=== PATIENT | female | born 1970 | race Caucasian/White ===

== ENCOUNTER 2016-08-04 15:13 | Emergency (ER) | payer MEDICAID | END 2016-08-04 18:03 | disposition home or self-care (01) | LOC: D.ER 15:13 | DX: S82.302A Unspecified fracture of lower end of left tibia, initial encounter for closed fracture (principal); X58.XXXA Exposure to other specified factors, initial encounter; Y93.89 Activity, other specified; Y92.89 Other specified places as the place of occurrence of the external cause ==

== ENCOUNTER 2016-09-07 03:24 | Emergency (ER) | payer MEDICAID | END 2016-09-07 04:50 | disposition home or self-care (01) | LOC: D.ER 03:24 | DX: T14.8 Other injury of unspecified body region (principal); X58.XXXA Exposure to other specified factors, initial encounter; Y93.89 Activity, other specified; Y92.89 Other specified places as the place of occurrence of the external cause ==

== ENCOUNTER 2017-07-21 13:31 | Emergency (ER) | payer MEDICAID | END 2017-07-21 14:45 | disposition home or self-care (01) | LOC: D.ER 13:31 | DX: J06.9 Acute upper respiratory infection, unspecified (principal); B34.9 Viral infection, unspecified ==

== ENCOUNTER 2017-08-09 20:38 | Emergency (ER) | payer MEDICAID | END 2017-08-09 23:41 | disposition home or self-care (01) | LOC: D.ER 20:38 | DX: S80.02XA Contusion of left knee, initial encounter (principal); W18.31XA Fall on same level due to stepping on an object, initial encounter; Y93.89 Activity, other specified; Y92.89 Other specified places as the place of occurrence of the external cause ==

== ENCOUNTER 2017-08-19 10:16 | Emergency (ER) | payer MEDICAID ==
[~2017-08-19] VITALS: Ht 177.8 cm; Wt 150.0 kg
[2017-08-19 10:25] VITALS: Ht 177.8 cm; Wt 150.0 kg
[2017-08-19] MEDS ORDERED: DICLOFENAC SODI50 MG PO (10:31)
[2017-08-19 11:09] LABS: APPEARANCE SLT CLOUDY (CLEAR); BILIRUBIN NEGATIVE (NEGATIVE); COLOR YELLOW (YELLOW); GLUCOSE NEGATIVE (NEGATIVE); KETONE NEGATIVE (NEGATIVE); NITRITE NEGATIVE (NEGATIVE); PROTEIN NEGATIVE (NEGATIVE); SPECIFIC GRAVITY 1.015 (1.005-1.020); UROBILINOGEN NORMAL (NORMAL)
[2017-08-19 11:12] LABS: BACTERIA FEW /hpf (NONE SEEN); RED CELLS - URINE 0-5 /hpf (0-5)
[2017-08-19] MEDS ORDERED: CYCLOBENZAPRINE10 MG PO (11:36)
[2017-08-19] MEDS ORDERED: MACROBID100 MG PO (11:36)
[2017-08-19] MEDS ORDERED: KEFLEX500 MG PO (11:36)
[2017-08-19] MEDS ORDERED: ACETAMINOPHEN325 MG PO (11:36)
[2017-08-19] MEDS ORDERED: IBUPROFEN800 MG PO (11:36)
[2017-08-19 12:47] VITALS: BP 106/63
== END 2017-08-19 12:44 | disposition home or self-care (01) ==
LOC: D.ER 10:16
PROVIDERS: Family Medicine
DX: N39.0 Urinary tract infection, site not specified (principal); M79.662 Pain in left lower leg; M25.562 Pain in left knee

== ENCOUNTER 2018-07-11 22:59 | Emergency (ER) | payer MEDICAID ==
[~2018-07-11 22:59] MED LIST: ACETAMINOPHEN325 MG PO; CYCLOBENZAPRINE10 MG PO; DICLOFENAC SODI50 MG PO; IBUPROFEN800 MG PO; KEFLEX500 MG PO; MACROBID100 MG PO
[2018-07-11 23:15] VITALS: BMI 46.0
[2018-07-11] MEDS ORDERED: GABAPENTIN100 MG PO (23:16)
[2018-07-12 00:11] LABS: HEMATOCRIT 37.5 % (36.0-48.0); HEMOGLOBIN 12.2 g/dL (12-16); LYMPHOCYTES 23.3 % (15-50); MCH 29.1 pg (26.0-34.0); MCHC 32.5 g/dL (31.0-37.0); MCV 89.5 fL (80.0-100.0); NEUTROPHILS 69.8 % (40-80); PLATELET COUNT 163 10x3/uL (130-400); RBC 4.19 10x6/uL (4.00-5.40); RDW 13.6 % (11.5-14.5); WBC 7.5 10x3/uL (4.8-10.8)
[2018-07-12 00:16] LABS: ALBUMIN 2.7 g/dL (3.4-5.0); ALKALINE PHOSPHATASE 112 U/L (46-116); ALT (SGPT) 15 U/L (10-68); BILIRUBIN - TOTAL 0.19 mg/dL (0.2-1.3); CALC OSMOLALITY 282 mosm/kg (275-300); CALCIUM 8.7 mg/dL (8.5-10.1); CARBON DIOXIDE 31.7 mmol/L (21.0-32.0); CHLORIDE - SERUM 100 mmol/L (98-107); CREATININE - SERUM 0.8 mg/dL (0.6-1.3); POTASSIUM - SERUM 3.7 mmol/L (3.5-5.1); PROTEIN - SERUM 7.6 g/dL (6.4-8.2); SODIUM 137 mmol/L (136-145); UREA NITROGEN 7 mg/dL (7-18); eGFR NON AFRICAN AMERICAN 82 mL/min (90-120)
[2018-07-12 00:18] LABS: APTT 30.4 SECONDS (22.8-39.4); INR 1.1 (0.85-1.17); PROTIME 13.7 SECONDS (11.6-15.0)
[2018-07-12 00:27] LABS: GLUCOSE 289 mg/dL (74-106)
[2018-07-12 00:35] LABS: CKMB 1.3 U/L (0.0-3.6); CREATINE KINASE 96 UL (21-215); MAGNESIUM - SERUM 1.5 mg/dL (1.8-2.4); TROPONIN-I < 0.017 ng/mL (0.000-0.060)
[2018-07-12] MEDS ORDERED: GLUCOPHAGE500 MG PO (00:45)
[2018-07-12 01:05] LABS: KETONE - SERUM NEGATIVE (NEGATIVE)
[2018-07-12 02:10] VITALS: BP 132/61
== END 2018-07-12 01:10 | disposition home or self-care (01) ==
LOC: D.ER 22:59
PROVIDERS: Emergency Medicine
DX: E11.65 Type 2 diabetes mellitus with hyperglycemia (principal)

== ENCOUNTER 2019-01-24 19:27 | Emergency (ER) | payer MEDICAID ==
[~2019-01-24] VITALS: Ht 177.8 cm; Wt 136.4 kg
[~2019-01-24 19:27] MED LIST changes: +GABAPENTIN100 MG PO; +GLUCOPHAGE500 MG PO
[2019-01-24 19:37] VITALS: Ht 177.8 cm; Wt 136.4 kg
[2019-01-24 19:48] LABS: BASOPHILS 0.2 % (0-2); EOSINOPHILS 1.2 % (0-7); HEMATOCRIT 44.3 % (36.0-48.0); HEMOGLOBIN 14.2 g/dL (12-16); IMMATURE GRANULOCYTES 0.2 % (0-5); LYMPHOCYTES 18.5 % (15-50); MCH 29.2 pg (26.0-34.0); MCHC 32.1 g/dL (31.0-37.0); MCV 91.2 fL (80.0-100.0); MEAN PLATELET VOLUME 10.3 fL (7.4-10.4); MONOCYTES 7.1 % (2-11); NEUTROPHILS 72.8 % (40-80); PLATELET COUNT 205 10x3/uL (130-400); RBC 4.86 10x6/uL (4.00-5.40); RDW 14.3 % (11.5-14.5); WBC 10.2 10x3/uL (4.8-10.8)
[2019-01-24 19:56] LABS: APTT 32.2 SECONDS (22.8-39.4); INR 1.06 (0.85-1.17); PROTIME 13.3 SECONDS (11.6-15.0)
[2019-01-24 20:40] LABS: CALC OSMOLALITY 280 mosm/kg (275-300); CALCIUM 8.8 mg/dL (8.5-10.1); CARBON DIOXIDE 30.1 mmol/L (21.0-32.0); CHLORIDE - SERUM 102 mmol/L (98-107); CREATININE - SERUM 0.8 mg/dL (0.6-1.3); POTASSIUM - SERUM 4.3 mmol/L (3.5-5.1); SODIUM 140 mmol/L (136-145); UREA NITROGEN 8 mg/dL (7-18); eGFR NON AFRICAN AMERICAN 81 mL/min (90-120)
[2019-01-24 20:42] LABS: GLUCOSE 167 mg/dL (74-106)
[2019-01-24 20:58] LABS: ALBUMIN 3.1 g/dL (3.4-5.0); ALKALINE PHOSPHATASE 91 U/L (46-116); ALT (SGPT) 17 U/L (10-68); BILIRUBIN - TOTAL 0.25 mg/dL (0.2-1.3); CKMB 0.6 U/L (0.0-3.6); CREATINE KINASE 65 UL (21-215); MAGNESIUM - SERUM 1.5 mg/dL (1.8-2.4); PROTEIN - SERUM 7.5 g/dL (6.4-8.2)
[2019-01-24 20:59] LABS: TROPONIN-I < 0.017 ng/mL (0.000-0.060)
[2019-01-24] MEDS ORDERED: ULTRAM50 MG PO (22:05)
[2019-01-24 23:49] VITALS: BP 107/64
== END 2019-01-24 23:49 | disposition home or self-care (01) ==
LOC: D.ER 19:27
PROVIDERS: Family Medicine
DX: R07.9 Chest pain, unspecified (principal); R07.81 Pleurodynia; E13.40 Other specified diabetes mellitus with diabetic neuropathy, unspecified; Z79.84 Long term (current) use of oral hypoglycemic drugs; Z86.711 Personal history of pulmonary embolism; R42 Dizziness and giddiness

== ENCOUNTER 2019-03-19 13:50 | Emergency (ER) | payer MEDICAID ==
[~2019-03-19] VITALS: Ht 177.8 cm; Wt 136.4 kg
[~2019-03-19 13:50] MED LIST changes: +ULTRAM50 MG PO
[2019-03-19 13:58] VITALS: Ht 177.8 cm; Wt 136.4 kg
[2019-03-19 14:12] LABS: BASOPHILS 0.2 % (0-2); HEMATOCRIT 43.6 % (36.0-48.0); HEMOGLOBIN 13.8 g/dL (12-16); IMMATURE GRANULOCYTES 0.2 % (0-5); LYMPHOCYTES 22.3 % (15-50); MCH 28.6 pg (26.0-34.0); MCHC 31.7 g/dL (31.0-37.0); MCV 90.5 fL (80.0-100.0); NEUTROPHILS 69.3 % (40-80); PLATELET COUNT 235 10x3/uL (130-400); RBC 4.82 10x6/uL (4.00-5.40); RDW 14.8 % (11.5-14.5); WBC 10.2 10x3/uL (4.8-10.8)
[2019-03-19 14:34] LABS: CALC OSMOLALITY 276 mosm/kg (275-300); CALCIUM 9.4 mg/dL (8.5-10.1); CARBON DIOXIDE 26.9 mmol/L (21.0-32.0); CHLORIDE - SERUM 98 mmol/L (98-107); CREATININE - SERUM 0.9 mg/dL (0.6-1.3); GLUCOSE 185 mg/dL (74-106); POTASSIUM - SERUM 3.9 mmol/L (3.5-5.1); SODIUM 137 mmol/L (136-145); UREA NITROGEN 6 mg/dL (7-18); eGFR NON AFRICAN AMERICAN 71 mL/min (90-120)
[2019-03-19 14:37] LABS: APTT 30.7 SECONDS (22.8-39.4); INR 1.07 (0.85-1.17); PROTIME 13.4 SECONDS (11.6-15.0)
[2019-03-19 14:45] LABS: ALBUMIN 3.4 g/dL (3.4-5.0); ALKALINE PHOSPHATASE 93 U/L (46-116); ALT (SGPT) 18 U/L (10-68); BILIRUBIN - TOTAL 0.32 mg/dL (0.2-1.3); CREATINE KINASE 61 UL (21-215); MAGNESIUM - SERUM 1.7 mg/dL (1.8-2.4); PROTEIN - SERUM 8.3 g/dL (6.4-8.2); TROPONIN-I < 0.017 ng/mL (0.000-0.060)
[2019-03-19 17:31] VITALS: BP 120/75
[2019-03-19] MEDS ORDERED: KLONOPIN0.5 MG PO (17:50)
== END 2019-03-19 18:01 | disposition home or self-care (01) ==
LOC: D.ER 13:50
PROVIDERS: Emergency Medicine
DX: R07.9 Chest pain, unspecified (principal); F43.0 Acute stress reaction; F41.9 Anxiety disorder, unspecified; E11.40 Type 2 diabetes mellitus with diabetic neuropathy, unspecified; Z79.84 Long term (current) use of oral hypoglycemic drugs

== ENCOUNTER 2019-08-05 21:44 | Emergency (ER) | payer MEDICAID ==
[~2019-08-05] VITALS: Ht 177.8 cm; Wt 136.4 kg
[~2019-08-05 21:44] MED LIST changes: +KLONOPIN0.5 MG PO
[2019-08-05 21:49] VITALS: Ht 177.8 cm; Wt 136.4 kg
[2019-08-05 22:46] LABS: BASOPHILS 0.1 % (0-2); EOSINOPHILS 1.4 % (0-7); HEMATOCRIT 43.3 % (36.0-48.0); HEMOGLOBIN 13.4 g/dL (12-16); IMMATURE GRANULOCYTES 0.1 % (0-5); LYMPHOCYTES 20.9 % (15-50); MCH 27.7 pg (26.0-34.0); MCHC 30.9 g/dL (31.0-37.0); MCV 89.5 fL (80.0-100.0); MEAN PLATELET VOLUME 9.9 fL (7.4-10.4); MONOCYTES 6.3 % (2-11); NEUTROPHILS 71.2 % (40-80); PLATELET COUNT 202 10x3/uL (130-400); RBC 4.84 10x6/uL (4.00-5.40); WBC 8.8 10x3/uL (4.8-10.8)
[2019-08-05] MEDS ORDERED: GUAIFEN-CODEINE10 ML PO (22:54)
[2019-08-05] MEDS ORDERED: VENTOLIN HFA [SP8 GM INH (22:54)
[2019-08-05 22:56] LABS: CALC OSMOLALITY 274 mosm/kg (275-300); CALCIUM 8.3 mg/dL (8.5-10.1); CHLORIDE - SERUM 102 mmol/L (98-107); CREATININE - SERUM 0.9 mg/dL (0.6-1.3); GLUCOSE 192 mg/dL (74-106); POTASSIUM - SERUM 3.7 mmol/L (3.5-5.1); SODIUM 136 mmol/L (136-145); UREA NITROGEN 6 mg/dL (7-18); eGFR NON AFRICAN AMERICAN 71 mL/min (90-120)
[2019-08-05 23:13] LABS: ALBUMIN 2.9 g/dL (3.4-5.0); ALKALINE PHOSPHATASE 82 U/L (30-120); ALT (SGPT) 15 U/L (10-68); BILIRUBIN - TOTAL 0.31 mg/dL (0.2-1.3); CKMB 0.9 U/L (0.0-3.6); CREATINE KINASE 60 UL (21-215); PRO BNP 80 pg/mL (0-125); PROTEIN - SERUM 7.6 g/dL (6.4-8.2)
[2019-08-05 23:16] LABS: TROPONIN-I < 0.017 ng/mL (0.000-0.060)
[2019-08-05 23:28] VITALS: BP 130/67
== END 2019-08-05 23:28 | disposition home or self-care (01) ==
LOC: D.ER 21:44
PROVIDERS: Family Medicine
DX: J40 Bronchitis, not specified as acute or chronic (principal); R06.02 Shortness of breath; E11.40 Type 2 diabetes mellitus with diabetic neuropathy, unspecified; Z79.84 Long term (current) use of oral hypoglycemic drugs; R05 Cough

== ENCOUNTER 2019-11-26 16:10 | Emergency (ER) | payer MEDICAID ==
[~2019-11-26] VITALS: Ht 177.8 cm; Wt 135.5 kg
[~2019-11-26 16:10] MED LIST changes: +GUAIFEN-CODEINE10 ML PO; +VENTOLIN HFA [SP8 GM INH
[2019-11-26 16:35] VITALS: BP 132/83; Ht 177.8 cm; Wt 135.5 kg
== END 2019-11-26 19:38 | disposition home or self-care (01) ==
LOC: D.ER 16:10
DX: G43.909 Migraine, unspecified, not intractable, without status migrainosus (principal); E11.9 Type 2 diabetes mellitus without complications